=== PATIENT | female | born 1940 | race Caucasian/White ===

== ENCOUNTER 2022-05-30 16:35 | Emergency (ER) | payer OTHER ==
[~2022-05-30] VITALS: Ht 147.3 cm; Wt 62.6 kg
[2022-05-30] MEDS ORDERED: METAXALONE400 MG PO (20:41)
[2022-05-30] MEDS ORDERED: MEDROLPACK PO (20:41)
[2022-05-30] MEDS ORDERED: CELEBREX100 MG PO (20:41)
== END 2022-05-30 20:48 | disposition home or self-care (01) ==
LOC: ER 16:35
DX: M54.2 Cervicalgia (principal)